=== PATIENT | female | born 2000 ===

== ENCOUNTER 2022-06-22 02:41 | Outpatient (CLI) | payer OTHER ==
[2022-06-22] MEDS ORDERED: PRENATAL TABLE1 EAC3 PO (03:24)
== END 2022-06-22 15:45 | disposition home or self-care (01) ==
LOC: OBS/DEL 02:41
PROVIDERS: ATTEND Obstetrics & Gynecology
DX: O26.893 Other specified pregnancy related conditions, third trimester (principal); Z3A.32 32 weeks gestation of pregnancy

== ENCOUNTER 2022-08-07 07:30 | Inpatient (IN) | payer OTHER ==
[~2022-08-07] VITALS: Ht 121.9 cm; Wt 3.6 kg
[~2022-08-07 07:30] MED LIST: PRENATAL TABLE1 EAC3 PO
[2022-08-12] MEDS ORDERED: PRENATAL TABLE1 EAC3 PO (11:18)
== END 2022-08-15 18:52 | disposition home or self-care (01) | DRG 788 ==
LOC: OB/GYN 08-12 07:30 → O/R 08-12 10:00 → OB/GYN 08-12 10:00
PROVIDERS: ADMIT Obstetrics & Gynecology; ATTEND Obstetrics & Gynecology
PROC: 4A1HXCZ Monitoring of Products of Conception, Cardiac Rate, External Approach (ICD-10-PCS; 2022-08-12)
PROC: 10D00Z1 Extraction of Products of Conception, Low, Open Approach (ICD-10-PCS; principal; 2022-08-12 09:00)
DX: O34.211 Maternal care for low transverse scar from previous cesarean delivery (principal); Z3A.39 39 weeks gestation of pregnancy; Z37.0 Single live birth; Z20.822 Contact with and (suspected) exposure to COVID-19